=== PATIENT | male | born 1960 | race Caucasian/White ===

== ENCOUNTER 2018-12-25 21:31 | Observation (INO) | payer OTHER ==
[2018-12-25] MEDS ORDERED: NITROGLYCERIN (SL) 0.4 MG TAB SL (22:30)
[2018-12-25] MEDS ORDERED: ACETAMINOPHEN 325 MG TAB PO (22:30)
[2018-12-25] MEDS ORDERED: NACL 0.9% 3 ML SYG IV (22:30)
[2018-12-25] MEDS ORDERED: HYDROCODONE/APAP (5/325) TAB PO ×2 (22:30)
[2018-12-25] MEDS ORDERED: ONDANSETRON 4 MG INJ IV (22:30)
[2018-12-26 00:52] LABS: ADD MAN DIFF? NO
[2018-12-26 00:55] LABS: BASOPHILS % 0.7 % (0.0-2.0); EOSINOPHILS # 0.3 10^3/ul (0.0-0.5); EOSINOPHILS % 5.5 % (0.0-7.0); HEMATOCRIT 45.3 % (42.0-52.0); HEMOGLOBIN 15.6 g/dl (14.0-18.0); LYMPHOCYTES # 1.6 10^3/ul (0.8-2.9); LYMPHOCYTES % 26.1 % (15.0-51.0); MEAN CORPUSCULAR HEMOGLOBIN 31.6 pg (29.0-33.0); MEAN CORPUSCULAR HGB CONC 34.4 g/dl (32.0-37.0); MEAN CORPUSCULAR VOLUME 91.9 fl (82.0-101.0); MEAN PLATELET VOLUME 9.9 fl (7.4-10.4); MONOCYTE # 0.6 10^3/ul (0.3-0.9); MONOCYTES % 9.8 % (0.0-11.0); NEUTROPHIL # 3.6 10^3/ul (1.6-7.5); NEUTROPHILS % 57.7 % (39.0-77.0); PLATELET COUNT 219 10^3/UL (140-415); RED BLOOD COUNT 4.93 10^6/ul (4.70-6.10); RED CELL DISTRIBUTION WIDTH 12.6 % (11.5-14.5)
[2018-12-26 00:55] LABS: WHITE BLOOD COUNT 6.1 10^3/ul (4.8-10.8)
[2018-12-26 01:28] LABS: ALANINE AMINOTRANSFERASE 16 IU/L (13-69); ALBUMIN 4.5 g/dl (3.3-4.9); ALBUMIN/GLOBULIN RATIO 1.32; ALKALINE PHOSPHATASE 52 IU/L (42-121); ANION GAP 9 (5-13); ASPARTATE AMINO TRANSFERASE 30 IU/L (15-46); BILIRUBIN,INDIRECT 0.5 mg/dl (0-1.1); BILIRUBIN,TOTAL 0.5 mg/dl (0.2-1.3); BLOOD UREA NITROGEN 15 mg/dl (7-20); CALCIUM 9.5 mg/dl (8.4-10.2); CARBON DIOXIDE 24 mmol/L (21-31); CHLORIDE 109 mmol/L (97-110); CREATINE KINASE 142 IU/L (23-200); CREATININE 0.77 mg/dl (0.61-1.24); Estimated GFR > 60 mL/min (>60); GLUCOSE 167 mg/dl (70-220); MAGNESIUM 2.3 mg/dl (1.7-2.5); POTASSIUM 4.3 mmol/L (3.5-5.1); SODIUM 142 mmol/L (135-144); TOTAL PROTEIN 7.9 g/dl (6.1-8.1)
[2018-12-26 01:38] LABS: HEMOGLOBIN A1C 5.3 % (0-5.9)
[2018-12-26 01:41] LABS: TROPONIN-I < 0.012 ng/ml (0.000-0.120)
[2018-12-26] MEDS ORDERED: LORAZEPAM 2 MG INJ IV (06:00)
[2018-12-26] MEDS: PANTOPRAZOLE (EC) 40 MG TAB PO (06:13)
[2018-12-26 07:01] LABS: CHOL/HDL RATIO 4.8 RATIO; HDL CHOLESTEROL 42 mg/dl (30-78); LDL CHOLESTEROL,CALCULATED 136 mg/dl; TRIGLYCERIDES 127 mg/dl (0-149)
[2018-12-26 07:01] LABS: CHOLESTEROL 203 mg/dl (100-200)
[2018-12-26 07:09] LABS: CK-MB 1.13 ng/ml (0.0-2.4); TROPONIN-I < 0.012 ng/ml (0.000-0.120)
[2018-12-26 07:17] LABS: CK INDEX 0.9; CREATINE KINASE 120 IU/L (23-200)
[2018-12-26] MEDS: ASPIRIN 81 MG TAB PO (08:26)
[2018-12-26] MEDS: FOLIC ACID 1 MG TAB PO (08:26)
[2018-12-26] MEDS: MULTIVITAMINS THERAPEUTIC TAB PO (08:26)
[2018-12-26] MEDS: THIAMINE 200 MG INJ IM (08:28)
[2018-12-26] MEDS: ENOXAPARIN 40 MG/0.4 ML SYG SC (09:01)
[2018-12-26] MEDS: PROPRANOLOL 20 MG TAB PO (21:40)
[2018-12-27] MEDS: PANTOPRAZOLE (EC) 40 MG TAB PO (05:35)
[2018-12-27 06:05] LABS: ADD MAN DIFF? NO
[2018-12-27 06:13] LABS: BASOPHILS % 0.5 % (0.0-2.0); EOSINOPHILS # 0.4 10^3/ul (0.0-0.5); EOSINOPHILS % 6.3 % (0.0-7.0); HEMATOCRIT 46.9 % (42.0-52.0); LYMPHOCYTES # 1.2 10^3/ul (0.8-2.9); LYMPHOCYTES % 20.7 % (15.0-51.0); MEAN CORPUSCULAR HEMOGLOBIN 31.3 pg (29.0-33.0); MEAN CORPUSCULAR HGB CONC 34.1 g/dl (32.0-37.0); MEAN CORPUSCULAR VOLUME 91.6 fl (82.0-101.0); MEAN PLATELET VOLUME 10.2 fl (7.4-10.4); MONOCYTE # 0.5 10^3/ul (0.3-0.9); MONOCYTES % 8.5 % (0.0-11.0); NEUTROPHIL # 3.7 10^3/ul (1.6-7.5); NEUTROPHILS % 63.7 % (39.0-77.0); PLATELET COUNT 212 10^3/UL (140-415); RED BLOOD COUNT 5.12 10^6/ul (4.70-6.10); RED CELL DISTRIBUTION WIDTH 12.7 % (11.5-14.5)
[2018-12-27 06:13] LABS: WHITE BLOOD COUNT 5.7 10^3/ul (4.8-10.8)
[2018-12-27 06:28] LABS: ALANINE AMINOTRANSFERASE 23 IU/L (13-69); ALBUMIN 4.1 g/dl (3.3-4.9); ALKALINE PHOSPHATASE 52 IU/L (42-121); ANION GAP 5 (5-13); ASPARTATE AMINO TRANSFERASE 25 IU/L (15-46); BILIRUBIN,INDIRECT 0.4 mg/dl (0-1.1); BILIRUBIN,TOTAL 0.4 mg/dl (0.2-1.3); BLOOD UREA NITROGEN 22 mg/dl (7-20); CARBON DIOXIDE 24 mmol/L (21-31); CHLORIDE 112 mmol/L (97-110); CREATININE 0.68 mg/dl (0.61-1.24); Estimated GFR > 60 mL/min (>60); GLUCOSE 98 mg/dl (70-220); LIPASE 135 U/L (23-300); MAGNESIUM 2.3 mg/dl (1.7-2.5); PHOSPHORUS 3.2 mg/dl (2.5-4.9); POTASSIUM 4.3 mmol/L (3.5-5.1); SODIUM 141 mmol/L (135-144); TOTAL PROTEIN 7.5 g/dl (6.1-8.1)
[2018-12-27 06:39] LABS: INR 0.89; PROTIME 12.2 Sec (11.9-14.9)
[2018-12-27] MEDS: THIAMINE 100 MG TAB PO (08:37)
[2018-12-27] MEDS: MULTIVITAMINS THERAPEUTIC TAB PO (08:37)
[2018-12-27] MEDS: FOLIC ACID 1 MG TAB PO (08:37)
[2018-12-27] MEDS: PROPRANOLOL 20 MG TAB PO ×2 (08:38→12:52)
[2018-12-27] MEDS: ENOXAPARIN 40 MG/0.4 ML SYG SC (08:38)
[2018-12-27] MEDS: ASPIRIN (EC) 81 MG TAB PO (09:14)
[2018-12-27] MEDS: NITROGLYCERIN AEROSOL (4.9 GM) (13:08)
[2018-12-27] MEDS: IOHEXOL 100 ML (13:33)
[2018-12-27] MEDS: SOD CHLORIDE 0.9% 100 ML (13:33)
== END 2018-12-27 16:50 | disposition home or self-care (01) ==
LOC: TEL 21:31
DX: R07.89 Other chest pain (principal); E78.5 Hyperlipidemia, unspecified; K21.9 Gastro-esophageal reflux disease without esophagitis; F10.20 Alcohol dependence, uncomplicated; Y90.9 Presence of alcohol in blood, level not specified; E66.9 Obesity, unspecified; Z68.35 Body mass index [BMI] 35.0-35.9, adult; Z87.11 Personal history of peptic ulcer disease; Z87.891 Personal history of nicotine dependence
CPT/HCPCS: 71045; 71046; 75574; 80053; 80061; 82550; 82553; 83036; 83690; 83735; 84100; 84443; 84484; 85025; 85610; 87081; 90686; 93005; 93306; 96372; 99217; G0378